=== PATIENT | female | born 1960 | race Asian ===

== ENCOUNTER 2018-03-01 20:29 | Emergency (ER) | payer SELFPAY ==
[~2018-03-01] VITALS: Ht 152.4 cm; Wt 54.4 kg
[2018-03-01 20:35] VITALS: BP 139/90
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
[2018-03-01] MEDS ORDERED: IBUPROFEN600 MG ORAL (21:36)
[2018-03-01 22:07] VITALS: BP 127/85
[2018-03-01 22:10] VITALS: BP 127/85
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
== END 2018-03-01 22:35 | disposition home or self-care (01) ==
LOC: EDBD 20:29 → EMR 21:29
DX: S30.0XXA Contusion of lower back and pelvis, initial encounter (principal); V03.90XA Pedestrian on foot injured in collision with car, pick-up truck or van, unspecified whether traffic or nontraffic accident, initial encounter; Y93.89 Activity, other specified; Y92.524 Gas station as the place of occurrence of the external cause; Z88.0 Allergy status to penicillin
CPT/HCPCS: 72131; 74176; 99284